=== PATIENT | female | born 1940 | race Caucasian/White ===

== ENCOUNTER → 2016-08-28 | Outpatient (CLI) | payer MEDICARE, BC ==
[~2016-08-28] MED LIST: MULT-933 PO
== END ==
LOC: IMA 12:48
PROVIDERS: ATTEND Family Medicine
DX: Z12.31 Encounter for screening mammogram for malignant neoplasm of breast (principal); N64.59 Other signs and symptoms in breast; N64.89 Other specified disorders of breast; M85.88 Other specified disorders of bone density and structure, other site; E28.39 Other primary ovarian failure; N95.8 Other specified menopausal and perimenopausal disorders; Z82.62 Family history of osteoporosis
CPT/HCPCS: 77063; 77080; G0202

== ENCOUNTER → 2016-09-06 | Outpatient (CLI) | payer MEDICARE, BC | LOC: WC.BC 13:39 | PROVIDERS: ATTEND Family Medicine | DX: D48.61 Neoplasm of uncertain behavior of right breast (principal); N64.59 Other signs and symptoms in breast; N64.89 Other specified disorders of breast | CPT/HCPCS: 76642; G0206 ==

== ENCOUNTER → 2016-09-18 | Outpatient (CLI) | payer MEDICARE, BC ==
[~2016-09-18] MED LIST changes: +LIDOCAINE 1% 30ml (STERI-PAK) ONE
== END ==
LOC: IMA 12:29
PROVIDERS: ATTEND Family Medicine
DX: N63 Unspecified lump in breast (principal); N64.59 Other signs and symptoms in breast
CPT/HCPCS: 19083; 88305; 88341; 88342; G0206